=== PATIENT | female | born 1990 | race Caucasian/White ===

== ENCOUNTER 2016-12-28 14:46 | Emergency (ER) | payer OTHER ==
[2016-12-28 14:58] VITALS: BP 140/72; PULSE 77; RESP 18; TEMP 98; O2SAT 98
[2016-12-28] MEDS ORDERED: Tetracaine 0.5% Ophth 2 ML BOTTLE OD ONE (16:17)
[2016-12-28] MEDS ORDERED: Ophthalmic Irrigation, Soln OU ONE (16:17)
--- NOTE | 2016-12-28 16:53 | ED PDOC ---
HPI: Eye Injury/Pain Time Seen by Provider: 12/28/16 15:11 Chief Complaint (Nursing): ENT Problem History Per: Patient History/Exam Limitations: no limitations Onset/Duration Of Symptoms: Hrs (2), Sudden Onset Current Symptoms Are (Timing): Still Present Severity: Mild Eye: 1 - pain fb sensation Quality: Sharp Wears Contact Lens?: No Associated Symptoms: Pain, FB Sensation. denies: Decreased Vision, Swelling, Itching, Discharge From Eye Additional History Per: Patient Additional Complaint(s): Pt states the wind blew something parrish in rt eye 2 hrs ago. Rt eye red and swollen and painful. Past Medical History Reviewed: Historical Data, Nursing Documentation, Vital Signs Vital Signs: Last Vital Signs Temp 98 F 12/28/16 14:56 Pulse 77 12/28/16 14:56 Resp 18 12/28/16 14:56 BP 140/72 12/28/16 14:56 Pulse Ox 98 12/28/16 14:56 - Medical History PMH: No Chronic Diseases - Family History Family History: States: Unknown Family Hx - Living Arrangements Living Arrangements: With Family - Social History Current smoker - smoking cessation education provided: No - Home Medications Home Medications: Ambulatory Orders Medication Instructions Recorded Gentamicin Sulfate [Garamycin 0.3% 1 drop OD Q6 #1 bottle 12/28/16 Opt] - Allergies Allergies/Adverse Reactions: Allergies Allergy/AdvReac Type Severity Reaction Status Date / Time aspirin Allergy SWELLING Verified 12/28/16 14:55 macladin Allergy SWELLING Uncoded 12/28/16 14:55 Review of Systems ROS Statement: Except As Marked, All Systems Reviewed And Found Negative Constitutional: Negative for: Fever, Chills Eyes: Positive for: Pain, Redness. Negative for: Vision Change, Conjunctivae Inflammation, Eyelid Inflammation Physical Exam - Reviewed Nursing Documentation Reviewed: Yes Vital Signs Reviewed: Yes - Physical Exam Appears: Positive for: Uncomfortable Head Exam: Positive for: ATRAUMATIC, NORMAL INSPECTION, NORMOCEPHALIC Eye Exam: Positive for: EOMI, PERRL, Other (small fb on right cornea removed with q tip tiny corneal abrasion noted with flurosecein neg siedel, eye irrigated). Negative for: Periorbital swelling, Periorbital tenderness, Conjunctival injection Neurologic/Psych: Positive for: Alert, party plan sales unit advisor II-XII, Oriented, Gait (steady). Negative for: Motor/Sensory Deficits - ECG O2 Sat by Pulse Oximetry: 98 Disposition - Clinical Impression Clinical Impression: Corneal foreign body - Patient ED Disposition Is Patient to be Admitted: No Counseled Patient/Family Regarding: Studies Performed, Diagnosis, Need For Followup, Rx Given - Disposition Referrals: Jose A Bull MD [Staff Provider] - (2 to 3 days) Disposition: Routine/Home Disposition Time: 17:31 Condition: GOOD Prescriptions: Gentamicin Sulfate [Garamycin 0.3% Opth] 1 drop OD Q6 #1 bottle Instructions: Eye Foreign Body (ED)
== END 2016-12-28 18:01 | disposition home or self-care (01) ==
LOC: H.ER 14:46
DX: T15.01XA Foreign body in cornea, right eye, initial encounter (principal)